=== PATIENT | female | born 1955 | race Caucasian/White ===

== ENCOUNTER 2017-08-21 18:53 | Observation (INO) | payer BC, SELFPAY ==
--- NOTE | 2017-08-21 19:36 | RAD REPORT ---
EXAM DESCRIPTION: RAD - Chest Single View - 08/21/2017 7:27 pm CLINICAL HISTORY: Chest pain. COMPARISON: None. FINDINGS: Portable technique limits examination quality. The lungs are grossly clear. The heart is normal in size. No displaced fractures. IMPRESSION: No acute intrathoracic process suspected.
[2017-08-21 19:44] LABS: Absolute Lymphocytes (CBC) 1.7 K/uL (0.7-4.9); Absolute Monocytes 0.7 K/uL (0.1-1.3); Absolute Neutrophil 7.7 K/uL (1.8-8.0); Basophils % 0.9 % (0-1.3); Eosinophils % 2.2 % (0-4.4); Hematocrit 44.4 % (36.0-45.0); Lymphocytes % 16.1 % (15.3-44.8); MCV 83.4 fL (80-100); MPV 9.2 fL (7.6-11.3); Monocytes % 6.8 % (3.3-12.3); RBC Red Blood Cell Count 5.32 M/uL (3.86-4.86)
[2017-08-21] MEDS ORDERED: ASPIRIN 81 MG CHEWABLE TABLET ONE (19:44)
[2017-08-21] MEDS ORDERED: NA CHLORIDE 0.9% 1,000 ML ONE (19:44)
[2017-08-21 19:47] LABS: Protime INR 1.02
[2017-08-21 19:51] LABS: Potassium 3.2 mEq/L (3.6-5.0)
[2017-08-21 19:57] LABS: Albumin 4.4 g/dL (3.2-5.5); Bilirubin Direct 0.1 mg/dL (0-0.2); Bilirubin Total 0.9 mg/dL (0.3-1.2); Magnesium 2.2 mg/dL (1.8-2.5); Protein, Total 7.6 g/dL (6.0-8.3)
[2017-08-21] MEDS ORDERED: METOPROLOL TAR 50 MG TAB ONE (19:57)
[2017-08-21] MEDS ORDERED: MORPHINE 4 MG/ML SYR ONE (19:58)
[2017-08-21] MEDS ORDERED: ONDANSETRON 4 MG/2 ML VIAL ONE (19:58)
[2017-08-21] MEDS ORDERED: ENOXAPARIN 100 MG/ML SYR SQ ONE (19:58)
[2017-08-21 20:00] LABS: CKMB Creatine Kinase MB 0.9 ng/ml (0.3-4.0)
[2017-08-21] MEDS ORDERED: POTASSIUM CL SA 10 MEQ TAB PO ONE (20:20)
--- NOTE | 2017-08-21 20:31 | EDPHYS ---
Physician Documentation [facility] Name: Brianna Cordero Age: 62 yrs Sex: Female : 1955 Arrival Date: 08/21/2017 Time: 18:56 Bed 2 Private MD: ED Physician Eric Douglas HPI: 08/21 19:25 This 62 yrs old Female presents to ER via Wheelchair with complaints of Chest jamarcus Pain. 19:25 The patient or guardian reports chest pain that is located primarily in the substernal jamarcus area, epigastric area. Onset: just prior to arrival. The pain does not radiate. Associated signs and symptoms: The patient has no apparent associated signs or symptoms. The chest pain is described as a heaviness, a pressure. Duration: The patient or guardian reports multiple episodes, with no pattern. Modifying factors: The symptoms are alleviated by nothing. the symptoms are aggravated by nothing. Severity of pain: At its worst the pain was mild moderate in the emergency department the pain is unchanged. The patient has not experienced similar symptoms in the past. Historical: - Allergies: 19:12 No Known Allergies; lp1 - Home Meds: 19:12 Plavix Oral [Active]; Zoloft Oral [Active]; Xanax Oral [Active]; lp1 - PMHx: 19:12 Depression; [place] X2; COPD; Hypertension; lp1 - PSHx: 19:12 Appendectomy; Tubal ligation; Heart stents; lp1 - Immunization history:: Adult Immunizations up to date. - Social history:: Smoking status: Patient uses tobacco products, smokes one-half pack cigarettes per day. - Family history:: not pertinent. ROS: 19:25 Constitutional: Negative for fever, chills, and weight loss, Eyes: Negative for injury, jamarcus pain, redness, and discharge, ENT: Negative for injury, pain, and discharge, Neck: Negative for injury, pain, and swelling, Respiratory: Negative for shortness of breath, cough, wheezing, and pleuritic chest pain, Abdomen/GI: Negative for abdominal pain, nausea, vomiting, diarrhea, and constipation, Back: Negative for injury and pain, : Negative for injury, bleeding, discharge, and swelling, MS/Extremity: Negative for injury and deformity, Skin: Negative for injury, rash, and discoloration, Neuro: Negative for headache, weakness, numbness, tingling, and seizure. 19:25 Cardiovascular: Positive for chest pain, of the chest. Exam: 19:25 Constitutional: This is a well developed, well nourished patient who is awake, alert, jamarcus and in no acute distress. Head/Face: Normocephalic, atraumatic. Eyes: Pupils equal round and reactive to light, extra-ocular motions intact. Lids and lashes normal. Conjunctiva and sclera are non-icteric and not injected. Cornea within normal limits. Periorbital areas with no swelling, redness, or edema. ENT: Nares patent. No nasal discharge, no septal abnormalities noted. Tympanic membranes are normal and external auditory canals are clear. Oropharynx with no redness, swelling, or masses, exudates, or evidence of obstruction, uvula midline. Mucous membranes moist. Neck: Trachea midline, no thyromegaly or masses palpated, and no cervical lymphadenopathy. Supple, full range of motion without nuchal rigidity, or vertebral point tenderness. No Meningismus. Chest/axilla: Normal chest wall appearance and motion. Nontender with no deformity. No lesions are appreciated. Cardiovascular: Regular rate and rhythm with a normal S1 and S2. No gallops, murmurs, or rubs. Normal PMI, no JVD. No pulse deficits. Respiratory: Lungs have equal breath sounds bilaterally, clear to auscultation and percussion. No rales, rhonchi or wheezes noted. No increased work of breathing, no retractions or nasal flaring. Abdomen/GI: Soft, non-tender, with normal bowel sounds. No distension or tympany. No guarding or rebound. No evidence of tenderness throughout. Back: No spinal tenderness. No costovertebral tenderness. Full range of motion. Skin: Warm, dry with normal turgor. Normal color with no rashes, no lesions, and no evidence of cellulitis. MS/ Extremity: Pulses equal, no cyanosis. Neurovascular intact. Full, normal range of motion. Neuro: Awake and alert, GCS 15, oriented to person, place, time, and situation. Cranial nerves II-XII grossly intact. Motor strength 5/5 in all extremities. Sensory grossly intact. Cerebellar exam normal. Normal gait. Psych: Awake, alert, with orientation to person, place and time. Behavior, mood, and affect are within normal limits. 19:25 Musculoskeletal/extremity: DVT Exam: No signs of deep vein thrombosis. no pain, no swelling, no tenderness, negative Homans' sign noted on exam, no appreciated bluish discoloration, no erythema, no increased warmth. Vital Signs: 19:10 BP 157 / 85; Pulse 90; Resp 20; Temp 98.2(TE); Pulse Ox 97% on R/A; Weight 102.06 kg; lp1 Height 5 ft. 7 in. (170.18 cm); Pain 9/10; 19:15 BP 135 / 61; Pulse 70; Resp 15; Pulse Ox 99% ; bp 20:00 BP 111 / 45; Pulse 67; Resp 15; Pulse Ox 98% ; bp 21:57 BP 127 / 50; Pulse 64; Resp 10; Pulse Ox 99% ; bp 22:30 BP 138 / 66; Pulse 64; Resp 16; Temp 98.0(TE); Pulse Ox 98% on R/A; Pain 0/10; fc 19:10 Body Mass Index 35.24 (102.06 kg, 170.18 cm) lp1 MDM: 19:11 Patient medically screened. [facility] 19:27 Data reviewed: vital signs, nurses notes, lab test result(s), EKG, radiologic studies, jamarcus plain films. 08/21 19:18 Order name: Basic Metabolic Panel; Complete Time: 20:19 [facility] 08/21 19:18 Order name: BNP; Complete Time: 20:19 [facility] 08/21 19:18 Order name: CBC with Diff; Complete Time: 20:19 [facility] 08/21 19:18 Order name: Ckmb; Complete Time: 20:19 [facility] 08/21 19:18 Order name: CPK; Complete Time: 20:19 [facility] 08/21 19:18 Order name: LFT's; Complete Time: 20:19 [facility] 08/21 19:18 Order name: Magnesium; Complete Time: 20:19 [facility] 08/21 19:18 Order name: PT-INR; Complete Time: 20:19 [facility] 08/21 19:18 Order name: Ptt, Activated; Complete Time: 20:19 [facility] 08/21 19:18 Order name: Troponin (emerg Dept Use Only); Complete Time: 20:19 [facility] 08/21 19:18 Order name: Lipase; Complete Time: 20: [facility] 08/21 19:18 Order name: Urine Culture [facility] 08/21 20:30 Order name: Ckmb; Complete Time: 21:43 [facility] 08/21 20:30 Order name: Creatine Phosphokinase; Complete Time: 21:43 [facility] 08/21 19:18 Order name: XRAY Chest (1 view); Complete Time: 19:48 [facility] 08/21 19:18 Order name: EKG; Complete Time: 19:18 [facility] 08/21 19:18 Order name: Cardiac monitoring; Complete Time: 19:37 [facility] 08/21 20:30 Order name: Troponin (emerg Dept Use Only); Complete Time: 21:43 [facility] 08/21 20:55 Order name: CONS Physician Consult [facility] 08/21 20:55 Order name: Echo with Doppler [facility] 08/21 21:02 Order name: Urine Dipstick-Ancillary; Complete Time: 21:43 [facility] 08/21 19:18 Order name: EKG - Nurse/Tech; Complete Time: 19:37 [facility] 08/21 19:18 Order name: IV Saline Lock; Complete Time: 19:36 [facility] 08/21 19:18 Order name: Labs collected and sent; Complete Time: 19:36 [facility] 08/21 19:18 Order name: O2 Per Protocol; Complete Time: 19:36 [facility] 08/21 19:18 Order name: O2 Sat Monitoring; Complete Time: 19:36 [facility] 08/21 19:18 Order name: Urine Dipstick-Ancillary (obtain specimen); Complete Time: 21:05 [facility] 08/21 20:30 Order name: Repeat Cardiac Enzymes at: now; Complete Time: 20:42 [facility] Administered Medications: 19:30 Drug: NS 0.9% 1000 ml Route: IV; Rate: 125 ml/hr; Site: right antecubital; bp 22:37 Follow up: Response: No adverse reaction; IV Status: Infusion continued upon admission; fc IV Intake: 250ml 19:30 Drug: Aspirin 162 mg Route: PO; bp 19:36 Follow up: Response: No adverse reaction bp 19:30 Drug: Aspirin 81 mg Route: PO; bp 19:36 Follow up: Response: No adverse reaction bp 19:40 Drug: morphine 2 mg Route: IVP; Site: right antecubital; bp 19:47 Follow up: Response: No adverse reaction bp 19:40 Drug: Zofran 4 mg Route: IVP; Site: right antecubital; bp 19:47 Follow up: Response: No adverse reaction bp 19:40 Drug: Lovenox 1 mg/kg Route: Sub-Q; Site: right lower abdomen; bp 19:47 Follow up: Response: No adverse reaction bp 19:40 Drug: Lopressor (metoprolol TARTRATE) 50 mg Route: PO; bp 19:48 Follow up: Response: No adverse reaction bp 20:03 Drug: Potassium Chloride 20 mEq Route: PO; bp 20:06 Follow up: Response: No adverse reaction bp 20:43 Drug: morphine 2 mg Route: IVP; Site: right antecubital; bp 20:43 Follow up: Response: Pain is decreased bp Disposition: 08/21/17 20:30 Hospitalization ordered by Shari Zambrano for Observation. Preliminary diagnosis are Chest pain, unspecified, Chronic obstructive pulmonary disease, unspecified, Essential (primary) hypertension, Hypokalemia. - Bed requested for Telemetry/MedSurg (observation). - Status is Observation. fc - Condition is Stable. - Problem is new. - Symptoms have improved. UTI on Admission? No Signatures: Dispatcher [employer] EDMS Eric Douglas MD MD cha Chretien, Felicia, RN RN fc Tara Clay RN RN 1 Katie Santos, MATTEO RN Ramos Richardson RN RN bp Corrections: (The following items were deleted from the chart) 19:14 19:11 Social history: Smoking status: Patient uses tobacco products, lp1 lp1
--- NOTE | 2017-08-21 20:31 | ER ---
Nurse's Notes [facility] Name: Brianna Cordero Age: 62 yrs Sex: Female : 1955 Arrival Date: 08/21/2017 Time: 18:56 Bed 2 Private MD: Diagnosis: Chest pain, unspecified;Chronic obstructive pulmonary disease, unspecified;Essential (primary) hypertension;Hypokalemia Presentation: 08/21 18:58 Presenting complaint: Patient states: Chest pain that began at 1500 today, has been lp1 taking cold medicine OTC; Has taken ASA x1 and Nitro x1. Transition of care: patient was not received from another setting of care. Onset of symptoms was August 21, 2017 at 15:00. Care prior to arrival: None. 18:58 Method Of Arrival: Wheelchair lp1 18:58 Acuity: JAMES 3 lp1 Historical: - Allergies: 19:12 No Known Allergies; lp1 - Home Meds: 19:12 Plavix Oral [Active]; Zoloft Oral [Active]; Xanax Oral [Active]; lp1 - PMHx: 19:12 Depression; [place] X2; COPD; Hypertension; lp1 - PSHx: 19:12 Appendectomy; Tubal ligation; Heart stents; lp1 - Immunization history:: Adult Immunizations up to date. - Social history:: Smoking status: Patient uses tobacco products, smokes one-half pack cigarettes per day. - Family history:: not pertinent. Screenin:10 Fall Risk None identified. bp 19:15 Abuse screen: Denies threats or abuse. Denies injuries from another. Nutritional lp1 screening: No deficits noted. Tuberculosis screening: No symptoms or risk factors identified. Assessment: 19:10 General: Appears distressed, uncomfortable, obese, Behavior is cooperative, appropriate bp for age, anxious. Pain: Complains of pain in mid-sternal area Pain does not radiate. Quality of pain is described as heavy, pressure, Pain began 4 hours ago. Neuro: Level of Consciousness is awake, alert, obeys commands, Oriented to person, place, time, situation, Appropriate for age. Cardiovascular: Reports chest pain, shortness of breath, Capillary refill < 3 seconds in bilateral fingers Patient's skin is warm and dry. Rhythm is regular Chest pain is described as severe, quality is heaviness, is located in substernal area is alleviated by rest. Respiratory: Airway is patent Respiratory effort is even, unlabored, Respiratory pattern is regular, symmetrical. GI: No signs and/or symptoms were reported involving the gastrointestinal system. : No deficits noted. EENT: No deficits noted. Derm: No deficits noted. Musculoskeletal: Circulation, motion, and sensation intact. Range of motion: intact in all extremities. 20:00 Reassessment: PT STATING SOME RELIEF OF S/S, FINAL LABS PENDING. VS STABLE ON MONITOR. bp 21:56 Reassessment: ADMIT IN PROCESS, ADMIT ORDERS FILED BY RAISA OTERO. PT RESTING QUIETLY, VS bp STABLE ON MONITOR. Vital Signs: 19:10 BP 157 / 85; Pulse 90; Resp 20; Temp 98.2(TE); Pulse Ox 97% on R/A; Weight 102.06 kg; lp1 Height 5 ft. 7 in. (170.18 cm); Pain 9/10; 19:15 BP 135 / 61; Pulse 70; Resp 15; Pulse Ox 99% ; bp 20:00 BP 111 / 45; Pulse 67; Resp 15; Pulse Ox 98% ; bp 21:57 BP 127 / 50; Pulse 64; Resp 10; Pulse Ox 99% ; bp 22:30 BP 138 / 66; Pulse 64; Resp 16; Temp 98.0(TE); Pulse Ox 98% on R/A; Pain 0/10; fc 19:10 Body Mass Index 35.24 (102.06 kg, 170.18 cm) lp1 ED Course: 18:56 Patient arrived in ED. mr 18:59 Triage completed. lp1 18:59 Arm band placed on left wrist. lp1 19:10 Ramos Richardson, RN is Primary Nurse. bp 19:10 Inserted saline lock: 18 gauge in right antecubital area, using aseptic technique. bp Blood collected. Oxygen administration via nasal cannula \T\ 2L/min. 19:11 Eric Douglas MD is Attending Physician. [facility] 19:12 EKG done, by ED staff, reviewed by Eric Douglas MD. lp1 19:14 Patient has correct armband on for positive identification. Placed in gown. Bed in low lp1 position. Call light in reach. clay thrower on. Pulse ox on. NIBP on. 19:26 X-ray completed. Portable x-ray completed in exam room. Patient tolerated procedure kc2 well. 19:27 XRAY Chest (1 view) In Process Unspecified. EDMS 20:19 Shari Zambrano MD is Hospitalizing Provider. [facility] 22:31 No provider procedures requiring assistance completed. Patient admitted, IV remains in fc place. Administered Medications: 19:30 Drug: NS 0.9% 1000 ml Route: IV; Rate: 125 ml/hr; Site: right antecubital; bp 22:37 Follow up: Response: No adverse reaction; IV Status: Infusion continued upon admission; IV Intake: 250ml 19:30 Drug: Aspirin 162 mg Route: PO; bp 19:36 Follow up: Response: No adverse reaction bp 19:30 Drug: Aspirin 81 mg Route: PO; bp 19:36 Follow up: Response: No adverse reaction bp 19:40 Drug: morphine 2 mg Route: IVP; Site: right antecubital; bp 19:47 Follow up: Response: No adverse reaction bp 19:40 Drug: Zofran 4 mg Route: IVP; Site: right antecubital; bp 19:47 Follow up: Response: No adverse reaction bp 19:40 Drug: Lovenox 1 mg/kg Route: Sub-Q; Site: right lower abdomen; bp 19:47 Follow up: Response: No adverse reaction bp 19:40 Drug: Lopressor (metoprolol TARTRATE) 50 mg Route: PO; bp 19:48 Follow up: Response: No adverse reaction bp 20:03 Drug: Potassium Chloride 20 mEq Route: PO; bp 20:06 Follow up: Response: No adverse reaction bp 20:43 Drug: morphine 2 mg Route: IVP; Site: right antecubital; bp 20:43 Follow up: Response: Pain is decreased bp Intake: 22:37 IV: 250ml; Total: 250ml. fc Outcome: 20:30 Decision to Hospitalize by Provider. [facility] 22:31 Admitted to Tele accompanied by tech, via wheelchair, room 428, with chart, Report fc called to Michelle FELIPE 22:31 Condition: good 22:31 Discharge instructions given to patient, Instructed on the need for admit, Demonstrated understanding of instructions. 22:38 Patient left the ED. fc Signatures: Dispatcher [employer] EDMS Eric Douglas MD MD cha Rivera, Maria mr Emi Lemon RN RN Tara Clay RN RN lp1 Valerie Villar kc2 Ramos Richardson, RN RN bp Corrections: (The following items were deleted from the chart) 19:14 19:10 BP 157 / 85; Pulse 90bpm; Resp 20bpm; Pulse Ox 97% RA; Temp 98.2F Temporal; Pain lp1 02/01; lp1 19:14 19:11 Social history: Smoking status: Patient uses tobacco products, lp1 lp1 22:36 22:31 Admitted to Tele accompanied by tech, via wheelchair, room 428, with chart, fc Report called to Marce rachel
[2017-08-21] MEDS: POTASSIUM CL SA 10 MEQ TAB PO SCH (21:00)
[2017-08-21 21:06] LABS: Urine Blood 1+ (NEG); Urine Glucose NEGATIVE (NEG); Urine Protein NEGATIVE (NEG); Urine Specific Gravity <1.005 (1.005-1.030); Urine pH 5.5 (5.0-7.0)
[2017-08-21 21:23] LABS: CKMB Creatine Kinase MB 1.1 ng/ml (0.3-4.0)
[2017-08-21] MEDS ORDERED: MORPHINE 4 MG/ML SYR IV PRN (21:43)
[2017-08-21] MEDS ORDERED: ALPRAZOLAM 0.25 MG TABLET PO PRN (21:43)
[2017-08-21] MEDS ORDERED: ACETAMINOPHEN 500 MG TAB PO PRN (21:43)
[2017-08-21 22:50] VITALS: O2SAT 98
[2017-08-21 23:16] VITALS: BP 131/67; BMI 33.0
[2017-08-22 04:27] VITALS: TEMP 98.6
--- NOTE | 2017-08-22 07:22 | CON ---
Date of Consultation: 08/22/2017 Reason For Consultation: Chest pain. History Of Present Illness: Ms. Cordero is a 62-year-old woman. She has a history of depression, co ronary artery disease status post stents, COPD, hypertension, and has had a history of appendectomy a nd tubal ligation. She came in with substernal chest pressure more in the mid epigastric region. No radiation of the pain. The pain was described as heaviness and pressure, multiple episodes. No rel ation to food, body position, time of the day or exertion. Denies nausea, vomiting, diaphoresis, PND , orthopnea, pedal edema, palpitations, or syncope. Allergies: NONE. Review of Systems: Negative. Social History: Negative. Family History: Negative. Medications: Include Plavix, Zoloft, and Xanax. Physical Examination: Vital Signs: Stable. She was afebrile. HEENT: Negative. Neck: Supple with no bruit. Chest: Clear to auscultation and percussion. Cardiac: Revealed a regular rhythm and rate without any murmurs, gallops, or rubs. Abdomen: Benign. Extremities: Revealed no clubbing, cyanosis, or edema. Diagnostic Data: Her creatinine is 1.08, potassium 3.2. EKG, nonspecific. Chest x-ray is negative. Troponin, MB, CPKs are all negative. Impression And Plan: Atypical chest pain, more likely to be gastroesophageal reflux disease. The ignacio parr has a history of coronary artery disease and stents and risk factors, hypertension. Her blood pressure is fairly well controlled now. When she came in, her pressure was slightly elevated with a systolic of 157. It may be reasonable to treat her blood pressure with low-dose beta-blockers or low -dose AL inhibitor. I think adding a proton pump inhibitor and getting her scheduled as an outpatie nt for stress test is thing to do. So, we would not keep her in the hospital until Thursday to do any testing. She can have that done as an outpatient if it is okay with admitting physician. Her other past medical history includes history of depression and COPD. Both of those seem to be stable. HOWARD/REHAN Voice ID: [id number] Report ID: [id number]
--- NOTE | 2017-08-22 08:24 | P.HP ---
Certification for Inpatient Patient admitted to: Observation With expected LOS: <2 Midnights Patient will require the following post-hospital care: None Practitioner: I am a practitioner with admitting privileges, knowledge of patient current condition, hospital course, and medical plan of care. Services: Services provided to patient in accordance with Admission requirements found in Title 42 Section 412.3 of the Code of Federal Regulations Patient History Date of Service: 08/22/17 Reason for admission: Chest pain rule out acute coronary syndrome History of Present Illness: Patient is a 62-year-old female came into the hospital with chest pain. Pain was mainly in the sternal region. Patient states it was similar to her pain that she had which she had acute coronary syndrome a few years ago. She has not had follow-up because of not having insurance. She required 2 stents at that time. She had been taking Plavix daily. She also takes a baby aspirin but no other medication. She will be admitted to the hospital for further workup. Allergies No Known Allergies Allergy (Unverified 08/21/17 20:53) Home Medications: Alprazolam [Xanax*] 0.25 mg PO PRN PRN 08/21/17 Clopidogrel Bisulfate [Plavix*] 75 mg PO DAILY 08/21/17 Sertraline [Zoloft*] 50 mg PO DAILY 08/21/17 Famotidine [Pepcid] 20 mg PO BID #60 tablet 08/22/17 Metoprolol Tartrate [Lopressor*] 50 mg PO BID #60 tab 08/22/17 - Past Medical/Surgical History Has patient received pneumonia vaccine in the past: No Diabetic: No -: [place] x2 - July,; Mar, 2014 -: COPD -: Smoker -: Depression -: R. ankle reconstruction (eyars ago) -: Appy -: Cardiac stents x2 - Family History Father Family History: Reviewed- Non-Contributory - Social History Smoking Status: Current every day smoker Alcohol use: No CD- Drugs: No Caffeine use: Yes Place of Residence: Home Review of Systems 10-point ROS is otherwise unremarkable Physical Examination - Vital Signs Temperature: 98.6 F Blood Pressure: 131/67 Pulse: 65 Respirations: 18 Pulse Ox (%): 96 - Physical Exam General: Alert, In no apparent distress, Oriented x3 HEENT: Atraumatic, PERRLA, Mucous membr. moist/pink, EOMI, Sclerae nonicteric Neck: Supple, 2+ carotid pulse no bruit, No LAD, Without JVD or thyroid abnormality Respiratory: Clear to auscultation bilaterally, Normal air movement Cardiovascular: Regular rate/rhythm, Normal S1 S2, No murmurs Gastrointestinal: Normal bowel sounds, Soft and benign, Non-distended, No tenderness Musculoskeletal: No clubbing, No swelling, No tenderness Integumentary: No rashes Neurological: Normal gait, Normal speech, Normal strength at 5/5 x4 extr, Normal tone, Sensation intact, Cranial nerves 3-12 intact, Normal affect Lymphatics: No axilla or inguinal lymphadenopathy - Studies Laboratory Data (last 24 hrs) 08/21/17 19:15: PT 12.0, INR 1.02, APTT 25.3 08/21/17 19:15: WBC 10.4, Hgb 14.9, Hct 44.4, Plt Count 302 08/21/17 19:15: B-Natriuretic Peptide 93 08/21/17 19:15: Sodium 137, Potassium 3.2 L, BUN 11, Creatinine 1.08 H, Glucose 99, Magnesium 2.2, Total Bilirubin 0.9, AST 19, ALT 13, Alkaline Phosphatase 94 , Lipase 16 L Assessment & Plan - Problems (Diagnosis) (1) Chest pain, rule out acute myocardial infarction Current Visit: Yes Status: Acute (2) History of coronary artery stent placement Current Visit: Yes Status: Acute (3) Hyperlipidemia Current Visit: Yes Status: Acute (4) Hypertension Current Visit: Yes Status: Acute - Plan 1. Serial troponins and EKG 2. Cardiology consultation 3. Echocardiogram and stress test as an outpatient 4. Anti-platelet therapy, anti coagulation, beta-erwin, statin, and O2 as needed 5. IV morphine for pain 6. Nitro p.r.n. - Advance Directives Does patient have a Living Will: No Does patient have a Durable POA for Healthcare: No Home Medications: Alprazolam [Xanax*] 0.25 mg PO PRN PRN 08/21/17 Clopidogrel Bisulfate [Plavix*] 75 mg PO DAILY 08/21/17 Sertraline [Zoloft*] 50 mg PO DAILY 08/21/17 Famotidine [Pepcid] 20 mg PO BID #60 tablet 08/22/17 Metoprolol Tartrate [Lopressor*] 50 mg PO BID #60 tab 08/22/17 Patient Discharge Instructions: OK TO DC IV AND DC HOME. FOLLOW-UP WITH PRIMARY CARE PROVIDER IN 1-2 WEEKS. FOLLOW-UP WITH CARDIOLOGY IN 1-2 WEEKS. RETURN TO THE ER IF symptoms worsen. CALL or TEXT DR. KLINE AT [phone] IF ANY QUESTIONS REGARDING HOSPITAL STAY. PLEASE CALL THE FLOOR AT [phone] IF ANY MEDICATION OR NURSING QUESTIONS. Diet: AHA Activity: Fall precautions Time spent managing pt's care (in minutes): 55
[2017-08-22] MEDS ORDERED: METOPROLOL TAR 50 MG TAB PO SCH (09:00)
[2017-08-22] MEDS ORDERED: ASPIRIN EC 81 MG TAB PO SCH (09:00)
[2017-08-22] MEDS ORDERED: LISINOPRIL 10 MG TAB PO SCH (09:00)
[2017-08-22] MEDS ORDERED: ENOXAPARIN 40 MG/0.4 ML SQ SCH (09:00)
[2017-08-22] MEDS: POTASSIUM CL SA 10 MEQ TAB PO SCH (10:06)
--- NOTE | 2017-08-23 12:53 | EKG ---
Test Date: 2017-08-21 Test Time: 19:05:10 Photolithographic Stripper: SANKET MEASUREMENT RESULTS: Intervals: Rate: 82 NM: 130 QRSD: 72 QT: 402 QTc: 469 [place]: P: 41 NM: 130 QRS: 12 T: 48 INTERPRETIVE STATEMENTS: Normal sinus rhythm Prolonged QT Abnormal ECG Compared to ECG 09/30/2016 17:49:31 Prolonged QT interval now present ST (T wave) deviation no longer present Electronically Signed On 08-23-17 12:52:05 CDT by Gabriel Hernandez
== END 2017-08-22 11:58 | disposition home or self-care (01) ==
LOC: ER 18:53 → ERHOLD 21:07 → 4TH 22:07
PROVIDERS: ADMIT Hospitalist; ATTEND Hospitalist
DX: Z95.5 Presence of coronary angioplasty implant and graft; R07.9 Chest pain, unspecified; I10 Essential (primary) hypertension; F17.210 Nicotine dependence, cigarettes, uncomplicated; J44.9 Chronic obstructive pulmonary disease, unspecified; E78.5 Hyperlipidemia, unspecified
CPT/HCPCS: 36415; 71045; 80048; 80061; 80076; 81003; 82550; 82553; 83690; 83735; 83880; 84484; 85025; 85610; 85730; 87086; 87088; 93005; 96361; 96372; 96374; 96375; 99285; G0378; J1650; J2405; J7030

== ENCOUNTER 2018-10-04 21:09 | Inpatient (IN) | payer SELFPAY ==
[2018-10-04 21:33] LABS: Absolute Lymphocytes (CBC) 2.7 K/uL (0.7-4.9); Absolute Monocytes 0.8 K/uL (0.1-1.3); Absolute Neutrophil 7.7 K/uL (1.8-8.0); Basophils % 2.8 % (0-1.3); Eosinophils % 2.2 % (0-4.4); Hematocrit 41.9 % (36.0-45.0); Lymphocytes % 22.8 % (15.3-44.8); MPV 8.8 fL (7.6-11.3); Monocytes % 6.5 % (3.3-12.3); RBC Red Blood Cell Count 4.96 M/uL (3.86-4.86)
[2018-10-04 21:34] LABS: Protime INR 1.03
[2018-10-04 21:52] LABS: ALT/SGPT 13 U/L (12-78); AST/SGOT 12 U/L (15-37); Alkaline Phosphatase 122 U/L (45-117); BUN Blood Urea Nitrogen 13 mg/dL (7-18); Bicarbonate 26 mmol/L (21-32); Bilirubin Direct 0.1 mg/dL (0-0.2); Bilirubin Total 0.6 mg/dL (0.2-1.0); Glucose Level 87 mg/dL (74-106); Magnesium 2.5 mg/dL (1.8-2.4); NT PRO-BNP 315 pg/mL (<125); Potassium 3.6 mmol/L (3.5-5.1); Protein, Total 7.6 g/dL (6.4-8.2); Sodium Level 140 mmol/L (136-145); Troponin (Emerg Dept Use Only) < 0.02 ng/mL (0.0-0.045)
[2018-10-04] MEDS ORDERED: NITROGLYCERIN 1 GM PKT TD ONE (22:18)
[2018-10-04] MEDS ORDERED: NITROGLYCERIN 0.4 MG/TAB SL ONE (22:19)
--- NOTE | 2018-10-04 22:28 | ER ---
Nurse's Notes [facility] Name: Brianna Cordero Age: 63 yrs Sex: Female : 1955 Arrival Date: 10/04/2018 Time: 21:10 Bed 17 [facility] MD: Diagnosis: Unstable angina Presentation: 10/04 21:16 Presenting complaint: Patient states: right sided CP since 1919 this evening. Describes aa1 pain as pressure that is 5/10. States she also quit taking her BP medication and blood thinner 5-6 months ago because she ran out and has not had time to go to the doctor to have them refilled. Transition of care: patient was not received from another setting of care. Onset of symptoms was October 04, 2018 at 19:20. Risk Assessment: Do you want to hurt yourself or someone else? Patient reports no desire to harm self or others. Initial Sepsis Screen: Does the patient meet any 2 criteria? No. Patient's initial sepsis screen is negative. Does the patient have a suspected source of infection? No. Patient's initial sepsis screen is negative. Care prior to arrival: IV initiated. 20 GA, in the left antecubital area. 21:16 Method Of Arrival: EMS: [facility] aa1 21:16 Acuity: JAMES 2 aa1 Triage Assessment: 21:16 General: Appears in no apparent distress. comfortable, Behavior is calm, cooperative, aa1 appropriate for age. Historical: - Allergies: 10/05 02:16 No Known Allergies; jd3 - PMHx: 02:16 Depression; COPD; Hypertension; [place] X2; jd3 - PSHx: 02:16 Appendectomy; Tubal ligation; Heart stents; jd3 - Immunization history:: Flu vaccine is not up to date. - Social history:: Smoking status: Patient uses tobacco products, smokes one-half pack cigarettes per day. - Ebola Screening: : No symptoms or risks identified at this time. Screenin/13 21:46 Abuse screen: Denies threats or abuse. Nutritional screening: No deficits noted. jd3 Tuberculosis screening: No symptoms or risk factors identified. Fall Risk IV access (20 points). Ambulatory Aid- None/Bed Rest/Nurse Assist (0 pts). Gait- Normal/Bed Rest/Wheelchair (0 pts) Mental Status- Oriented to own ability (0 pts). Total [place] Fall Scale indicates No Risk (0-24 pts). Assessment: 21:16 General: Appears in no apparent distress. uncomfortable, Behavior is calm, cooperative, jd3 appropriate for age. Pain: Complains of pain in chest Pain does not radiate. Pain began 1 hour ago. Neuro: Level of Consciousness is awake, alert, obeys commands, Oriented to person, place, time, situation, Appropriate for age. Cardiovascular: Heart tones S1 S2 present Capillary refill < 3 seconds Patient's skin is warm and dry. Rhythm is regular. Respiratory: Airway is patent Respiratory effort is even, unlabored, Respiratory pattern is regular, symmetrical, Breath sounds are clear bilaterally. GI: No signs and/or symptoms were reported involving the gastrointestinal system. : No signs and/or symptoms were reported regarding the genitourinary system. EENT: No signs and/or symptoms were reported regarding the EENT system. Derm: Skin is intact, Skin is dry, Skin is normal, Skin temperature is warm. Musculoskeletal: Circulation, motion, and sensation intact. Range of motion: intact in all extremities. 22:20 Reassessment: Patient appears in no apparent distress at this time. No changes from jd3 previously documented assessment. Patient and/or family updated on plan of care and expected duration. Pain level reassessed. Patient is alert, oriented x 3, equal unlabored respirations, skin warm/dry/pink. 23:30 Reassessment: Patient appears in no apparent distress at this time. Patient and/or jd3 family updated on plan of care and expected duration. Pain level reassessed. Patient is alert, oriented x 3, equal unlabored respirations, skin warm/dry/pink. 10/05 00:30 Reassessment: Patient appears in no apparent distress at this time. Patient and/or jd3 family updated on plan of care and expected duration. Pain level reassessed. Patient is alert, oriented x 3, equal unlabored respirations, skin warm/dry/pink. 01:30 Reassessment: Patient appears in no apparent distress at this time. Patient and/or jd3 family updated on plan of care and expected duration. Pain level reassessed. Patient is alert, oriented x 3, equal unlabored respirations, skin warm/dry/pink. 02:04 Reassessment: Patient appears in no apparent distress at this time. Patient and/or jd3 family updated on plan of care and expected duration. Pain level reassessed. Patient is alert, oriented x 3, equal unlabored respirations, skin warm/dry/pink. Vital Signs: 10/04 21:16 BP 158 / 66; Pulse 61; Resp 18; Temp 99.1(O); Pulse Ox 100% on R/A; Weight 102.06 kg; aa1 Height 5 ft. 7 in. (170.18 cm); Pain 5/10; 22:20 BP 110 / 63; Pulse 71; Resp 15 S; Pulse Ox 96% on R/A; jd3 23:29 BP 138 / 59; Pulse 65; Resp 18 S; Pulse Ox 97% on R/A; jd3 10/05 02:03 BP 120 / 60; Pulse 58; Resp 15 S; Pulse Ox 94% on R/A; jd3 10/04 21:16 Body Mass Index 35.24 (102.06 kg, 170.18 cm) aa1 ED Course: 10/04 20:16 Initial lab(s) drawn, by ED staff, sent to lab. EKG done, by ED staff, reviewed by aa1 Deacon Tran MD. Maintain EMS IV. Dressing intact. Good blood return noted. Site clean \T\ dry. Gauge \T\ site: 20g LAC. Patient maintains SpO2 saturation greater than 95% on room air. 21:10 Patient arrived in ED. ds1 21:11 Patient has correct armband on for positive identification. Placed in gown. Bed in low aa1 position. Call light in reach. cafeteria monitor on. Pulse ox on. NIBP on. Warm blanket given. 21:14 Deacon Tran MD is Attending Physician. tw4 21:16 Arm band placed on right wrist. aa1 21:20 Marshal Roldan RN is Primary Nurse. jd3 21:27 Triage completed. aa1 21:55 XRAY Chest (1 view) In Process Unspecified. EDMS 22:27 Joann Elizabeth MD is Hospitalizing Provider. tw4 10/05 02:16 No provider procedures requiring assistance completed. Patient admitted, IV remains in jd3 place. Administered Medications: 10/04 22:15 Drug: Nitro-Bid Ointment 2 % 0.5 inches Route: Transdermal; Site: anterior chest wall; jd3 22:54 Follow up: Response: No adverse reaction jd3 22:16 Drug: Nitroglycerin 0.4 mg Route: Sublingual; jd3 22:54 Follow up: Response: No adverse reaction jd3 22:53 Drug: morphine 4 mg Route: IVP; Site: left antecubital; jd3 23:50 Follow up: Response: No adverse reaction jd3 22:53 Drug: Zofran 4 mg Route: IVP; Site: left antecubital; jd3 23:50 Follow up: Response: No adverse reaction jd3 22:53 Drug: Lovenox 1 mg/kg Route: Sub-Q; Site: abdomen; jd3 23:50 Follow up: Response: No adverse reaction jd3 Outcome: 22:28 Decision to Hospitalize by Provider. tw4 10/05 02:17 Admitted to Tele accompanied by nurse, via stretcher, room 415, with chart, Report jd3 called to Maria FELIPE Condition: stable Instructed on the need for admit. 02:25 Patient left the ED. anderson Signatures: Dispatcher [employer] EDMartha Pearce, RN RN rabia1 Jackie Hurley Jonathon, RN RN Deacon Ding MD MD tw4 Corrections: (The following items were deleted from the chart) 02:04 02:03 BP 104 / 49; Pulse 58bpm; Resp 15bpm; Spontaneous; Pulse Ox 94% RA; jd3 jd3
--- NOTE | 2018-10-04 22:28 | EDPHYS ---
Physician Documentation [facility] Name: Brianna Cordero Age: 63 yrs Sex: Female : 1955 Arrival Date: 10/04/2018 Time: 21:10 Bed 17 Private MD: ED Physician Deacon Tran HPI: 10/05 01:51 This 63 yrs old Female presents to ER via EMS with complaints of Chest Pain. tw4 01:51 The patient or guardian reports chest pain that is located primarily in the anterior tw4 chest wall. Onset: just prior to arrival, today, 2 hour(s) ago. The pain radiates to left neck, left jaw. Associated signs and symptoms: The patient has no apparent associated signs or symptoms. The chest pain is described as a heaviness, a pressure. Duration: The patient or guardian reports a single episode, that is still ongoing. Modifying factors: The symptoms are alleviated by nothing. the symptoms are aggravated by nothing. Severity of pain: At its worst the pain was mild in the emergency department the pain is unchanged. The patient has not experienced similar symptoms in the past. Historical: - Allergies: 02:16 No Known Allergies; jd3 - PMHx: 02:16 Depression; COPD; Hypertension; [place] X2; jd3 - PSHx: 02:16 Appendectomy; Tubal ligation; Heart stents; jd3 - Immunization history:: Flu vaccine is not up to date. - Social history:: Smoking status: Patient uses tobacco products, smokes one-half pack cigarettes per day. - Ebola Screening: : No symptoms or risks identified at this time. ROS: 01:51 Constitutional: Negative for fever, chills, and weight loss, Eyes: Negative for injury, tw4 pain, redness, and discharge, Respiratory: Negative for shortness of breath, cough, wheezing, and pleuritic chest pain, Abdomen/GI: Negative for abdominal pain, nausea, vomiting, diarrhea, and constipation, Back: Negative for injury and pain, MS/Extremity: Negative for injury and deformity, Skin: Negative for injury, rash, and discoloration. Exam: 01:51 Constitutional: This is a well developed, well nourished patient who is awake, alert, tw4 and in no acute distress. Head/Face: Normocephalic, atraumatic. Chest/axilla: Normal chest wall appearance and motion. Nontender with no deformity. No lesions are appreciated. Cardiovascular: Regular rate and rhythm with a normal S1 and S2. No gallops, murmurs, or rubs. Normal PMI, no JVD. No pulse deficits. Respiratory: Lungs have equal breath sounds bilaterally, clear to auscultation and percussion. No rales, rhonchi or wheezes noted. No increased work of breathing, no retractions or nasal flaring. Abdomen/GI: Soft, non-tender, with normal bowel sounds. No distension or tympany. No guarding or rebound. No evidence of tenderness throughout. Back: No spinal tenderness. No costovertebral tenderness. Full range of motion. MS/ Extremity: Pulses equal, no cyanosis. Neurovascular intact. Full, normal range of motion. Neuro: Awake and alert, GCS 15, oriented to person, place, time, and situation. Cranial nerves II-XII grossly intact. Motor strength 5/5 in all extremities. Sensory grossly intact. Cerebellar exam normal. Normal gait. Vital Signs: 10/04 21:16 BP 158 / 66; Pulse 61; Resp 18; Temp 99.1(O); Pulse Ox 100% on R/A; Weight 102.06 kg; aa1 Height 5 ft. 7 in. (170.18 cm); Pain 5/10; 22:20 BP 110 / 63; Pulse 71; Resp 15 S; Pulse Ox 96% on R/A; jd3 23:29 BP 138 / 59; Pulse 65; Resp 18 S; Pulse Ox 97% on R/A; jd3 10/05 02:03 BP 120 / 60; Pulse 58; Resp 15 S; Pulse Ox 94% on R/A; jd3 10/04 21:16 Body Mass Index 35.24 (102.06 kg, 170.18 cm) aa1 MDM: 10/04 21:14 Patient medically screened. tw4 10/05 01:58 Differential diagnosis: acute myocardial infarction, acute pericarditis, pulmonary tw4 embolus, stable angina, unstable angina. Data reviewed: vital signs, nurses notes. Data interpreted: youth nutritional monitor: rhythm is normal sinus rhythm, Pulse oximetry:. Test interpretation: by ED physician or midlevel provider: ECG, plain radiologic studies. Medication response: Nitro x 3 partially relieved pain. Response to treatment: the patient's symptoms have markedly improved after treatment, and as a result, I will admit patient. Physician consultation: Joann Elizabeth MD regarding admission, patient's condition, and will see patient in inpatient room, would like consultation with . Dr Hernandez consulted at 0030 agrees to see pt in consultation. ED course: Pt rested comfortably on the stretcher in the ED states her pain slightly improved with NTG and resolved after morphine. will admit for unstable angina. 10/04 21:21 Order name: Basic Metabolic Panel; Complete Time: 22:22 [facility] 10/04 22:23 Interpretation: Normal except: CL 108; GFR 61. [facility] 10/04 21:21 Order name: CBC with Diff; Complete Time: 22:23 [facility] 10/04 22:23 Interpretation: Normal except: WBC 11.7; RBC 4.96. [facility] 10/04 21:21 Order name: LFT's; Complete Time: 22:24 [facility] 10/04 22:24 Interpretation: Normal except: AST 12; ALK 122; GLOB 3.6. [facility] 10/04 21:21 Order name: Magnesium; Complete Time: 22:24 [facility] 10/04 22:24 Interpretation: Normal except: MG 2.5. [facility] 10/04 21:21 Order name: NT PRO-BNP; Complete Time: 22:24 [facility] 10/04 22:24 Interpretation: Normal except: NT PRO-BNP 315. [facility] 10/04 21:21 Order name: PT-INR [facility] 10/04 21:21 Order name: Troponin (emerg Dept Use Only) [facility] 10/04 21:21 Order name: XRAY Chest (1 view) [facility] 10/04 23:18 Order name: Troponin I [facility] 10/04 21:21 Order name: EKG; Complete Time: 21:21 [facility] 10/04 21:21 Order name: Cardiac monitoring; Complete Time: 21:21 [facility] 10/04 21:21 Order name: EKG - Nurse/Tech; Complete Time: 21:21 [facility] 10/04 21:21 Order name: IV Saline Lock; Complete Time: 21:21 [facility] 10/04 21:21 Order name: Labs collected and sent; Complete Time: 21:21 [facility] 10/04 21:21 Order name: O2 Per Protocol; Complete Time: 21:21 [facility] 10/04 21:21 Order name: O2 Sat Monitoring; Complete Time: 21:21 j 10/04 23:18 Order name: EKG Electrocardiogram [facility] EC:57 Rate is 61 beats/min. Rhythm is regular, Normal Sinus Rhythm. QRS [place] is Normal. [place] tw4 interval is normal. QRS interval is normal. QT interval is normal. No Q waves. T waves are Normal. No ST changes noted. Clinical impression: Normal ECG. Interpreted by me. Reviewed by me. Administered Medications: 10/04 22:15 Drug: Nitro-Bid Ointment 2 % 0.5 inches Route: Transdermal; Site: anterior chest wall; jd3 22:54 Follow up: Response: No adverse reaction jd3 22:16 Drug: Nitroglycerin 0.4 mg Route: Sublingual; jd3 22:54 Follow up: Response: No adverse reaction jd3 22:53 Drug: morphine 4 mg Route: IVP; Site: left antecubital; jd3 23:50 Follow up: Response: No adverse reaction jd3 22:53 Drug: Zofran 4 mg Route: IVP; Site: left antecubital; jd3 23:50 Follow up: Response: No adverse reaction jd3 22:53 Drug: Lovenox 1 mg/kg Route: Sub-Q; Site: abdomen; jd3 23:50 Follow up: Response: No adverse reaction jd3 Disposition: 10/04/18 22:28 Hospitalization ordered by Joann Elizabeth for Observation. Preliminary diagnosis is Unstable angina. - Bed requested for Telemetry/MedSurg (Inpatient). - Status is Observation. jd3 - Condition is Stable. - Problem is an ongoing problem. - Symptoms are unchanged. UTI on Admission? No Signatures: Dispatcher [employer] [facility] Brandi Browning RN RN mw Martha Alas RN RN Marhsal Steele RN RN Deacon Ding MD MD tw4 Corrections: (The following items were deleted from the chart) 10/05 01:29 10/04 22:28 Hospitalization Ordered by Joann Elizabeth MD for Observation. Preliminary diagnosis is Unstable angina. Bed requested for Telemetry/MedSurg (Inpatient). Status is Observation. Condition is Stable. Problem is an ongoing problem. Symptoms are unchanged. UTI on Admission? No. tw4 10/05 02:25 01:29 10/04/2018 22:28 Hospitalization Ordered by Joann Elizabeth MD for Observation. jd3 Preliminary diagnosis is Unstable angina. Bed requested for Telemetry/MedSurg (Inpatient). Status is Observation. Condition is Stable. Problem is an ongoing problem. Symptoms are unchanged. UTI on Admission? No. mw
[2018-10-04] MEDS ORDERED: MORPHINE 4 MG/ML SYR ONE (22:57)
[2018-10-04] MEDS ORDERED: ONDANSETRON 4 MG/2 ML VIAL ONE (22:58)
[2018-10-04] MEDS ORDERED: ENOXAPARIN 100 MG/ML SYR SQ ONE (22:58)
[2018-10-05] MEDS ORDERED: NITROGLYCERIN 0.4 MG/TAB SL PRN (02:35)
[2018-10-05 02:40] VITALS: BMI 32.1
[2018-10-05 03:38] LABS: Absolute Lymphocytes (CBC) 2.7 K/uL (0.7-4.9); Absolute Monocytes 0.7 K/uL (0.1-1.3); Absolute Neutrophil 5.2 K/uL (1.8-8.0); Basophils % 2.6 % (0-1.3); Eosinophils % 3.2 % (0-4.4); Hematocrit 39.8 % (36.0-45.0); Lymphocytes % 29.3 % (15.3-44.8); MPV 9.1 fL (7.6-11.3); Monocytes % 7.3 % (3.3-12.3); RBC Red Blood Cell Count 4.74 M/uL (3.86-4.86)
[2018-10-05 03:50] LABS: BUN Blood Urea Nitrogen 14 mg/dL (7-18); Bicarbonate 25 mmol/L (21-32); Glucose Level 92 mg/dL (74-106); Sodium Level 140 mmol/L (136-145); Troponin I < 0.02 ng/mL (0.0-0.045)
--- NOTE | 2018-10-05 05:47 | P.HP ---
Certification for Inpatient Patient admitted to: Inpatient With expected LOS: >2 Midnights Practitioner: I am a practitioner with admitting privileges, knowledge of patient current condition, hospital course, and medical plan of care. Services: Services provided to patient in accordance with Admission requirements found in Title 42 Section 412.3 of the Code of Federal Regulations Patient History Date of Service: 10/05/18 Reason for admission: chest pain History of Present Illness: Ms Cordero is a 63 years old woman with history of CAD s/p stent placement, HTN , tobacco abuse, who start with chest pain this evening around 7:20 PM. She describe the pain as pressure like, retrosternal, radiated to the jaw, associated with nausea, SOB, 7/10 of intensity, relived after nitro to 3/10. She denied diaphoresis. The patient states that she has not taken her medication for the last 5-6 months because has not had follow up. Initial EKG shows slightly ST depression in anterior leads, improved after pain decreased. Lab work shows normal trop I. At the time of my encounter the patient was still having chest pain but very mild. O2 sat 100% on RA, HR 61, BP 158/66. Allergies No Known Allergies Allergy (Unverified 08/21/17 20:53) Home medications list reviewed: Yes Home Medications: Aspirin 81 mg PO DAILY 10/05/18 - Past Medical/Surgical History Has patient received pneumonia vaccine in the past: No Diabetic: No -: [place] x2 - July,; Mar, 2014 -: COPD -: Smoker -: Depression -: HTN -: R. ankle reconstruction (years ago) -: Appendectomy -: Cardiac stents x2 (2006,2013) - Family History Mother -: Heart disease, Diabetes, Cancer Father -: Heart disease, Diabetes - Social History Smoking Status: Current every day smoker Counseled patient to stop smoking for: less than 10 minutes Alcohol use: No CD- Drugs: No Caffeine use: Yes Place of Residence: Home Review of Systems 10-point ROS is otherwise unremarkable Physical Examination - Vital Signs Temperature: 97.1 F Blood Pressure: 137/60 Pulse: 58 Respirations: 18 Pulse Ox (%): 95 - Physical Exam General: Alert, In no apparent distress HEENT: Atraumatic, PERRLA, Mucous membr. moist/pink, EOMI, Sclerae nonicteric Neck: Supple, 2+ carotid pulse no bruit, No LAD, Without JVD or thyroid abnormality Respiratory: Clear to auscultation bilaterally, Diminished Cardiovascular: Regular rate/rhythm, Normal S1 S2 Gastrointestinal: Normal bowel sounds, No tenderness Musculoskeletal: No tenderness Integumentary: No rashes Neurological: Normal speech, Normal strength at 5/5 x4 extr, Normal tone, Normal affect Lymphatics: No axilla or inguinal lymphadenopathy - Studies Laboratory Data (last 24 hrs) 10/05/18 00:44: Troponin I < 0.02 10/04/18 21:20: PT 12.1, INR 1.03 10/04/18 21:20: WBC 11.7 H, Hgb 13.9, Hct 41.9, Plt Count 331 10/04/18 21:20: Sodium 140, Potassium 3.6, BUN 13, Creatinine 0.94, Glucose 87, Magnesium 2.5 H, Total Bilirubin 0.6, AST 12 L, ALT 13, Alkaline Phosphatase 122 H Assessment and Plan - Problems (Diagnosis) (1) CAD (coronary artery disease) Current Visit: Yes Status: Acute Qualifiers: Coronary Disease-Associated Artery/Lesion type: [place] artery [place] vs. transplanted heart: [place] heart Associated angina: with unstable angina Qualified Code(s): I25.110 - Atherosclerotic heart disease of [place] coronary artery with unstable angina pectoris (2) Unstable angina Current Visit: Yes Status: Acute (3) Hyperlipidemia Current Visit: No Status: Acute Qualifiers: Hyperlipidemia type: unspecified Qualified Code(s): E78.5 - Hyperlipidemia , unspecified (4) Hypertension Current Visit: No Status: Acute Qualifiers: Hypertension type: essential hypertension Qualified Code(s): I10 - Essential (primary) hypertension - Plan Will admit the patient to the hospital due to unstable angina. Will order full dose Lovenox, statins, ASA, wave beta erwin due to baradycardia. Dr Hernandez was consulted by ER physician, he will see the patient in AM. Continue serial EKG and cardica enzymes monitoring. - Advance Directives Does patient have a Living Will: No Does patient have a Durable POA for Healthcare: No - Code Status/Comfort Care Code Status Assessed: Yes Code Status: Full Code
[2018-10-05] MEDS ORDERED: HYDRALAZINE HCL 20 MG/ML VIAL IV PRN (06:57)
--- NOTE | 2018-10-05 07:39 | RAD REPORT ---
EXAM DESCRIPTION: Alexandrea Single View10/04/2018 9:55 pm CLINICAL HISTORY: Chest pain COMPARISON: 2018 FINDINGS: The lungs appear clear of acute infiltrate. The heart is normal size IMPRESSION: No acute abnormalities displayed
--- NOTE | 2018-10-05 07:54 | EKG ---
Test Date: 2018-10-04 Test Time: 23:41:57 Probate Paralegal: JAYASHREE MEASUREMENT RESULTS: Intervals: Rate: 53 MA: 140 QRSD: 74 QT: 480 QTc: 450 [place]: P: 42 MA: 140 QRS: 5 T: 5 INTERPRETIVE STATEMENTS: Sinus bradycardia Otherwise normal ECG Compared to ECG 10/04/2018 21:16:51 Sinus rhythm no longer present Electronically Signed On 10-05-18 07:53:30 CDT by Gabriel Hernandez
--- NOTE | 2018-10-05 07:55 | EKG ---
Test Date: 2018-10-04 Test Time: 21:16:51 Loom Fixer: RICARDO MEASUREMENT RESULTS: Intervals: Rate: 61 [place]: 130 QRSD: 78 QT: 450 QTc: 453 [place]: P: 58 [place]: 130 QRS: 13 T: 34 INTERPRETIVE STATEMENTS: Normal sinus rhythm Normal ECG Compared to ECG 08/21/2017 19:05:10 Prolonged QT interval no longer present Electronically Signed On 10-05-18 07:55:01 CDT by Gabriel Hernandez
[2018-10-05 08:45] VITALS: O2SAT 95
[2018-10-05] MEDS ORDERED: ASPIRIN EC 81 MG TAB PO SCH (09:00)
[2018-10-05] MEDS ORDERED: ENOXAPARIN 100 MG/ML SYR SQ SCH (09:00)
[2018-10-05] MEDS ORDERED: ACETAMINOPHEN 500 MG TAB PO PRN (10:34)
[2018-10-05] MEDS ORDERED: TRAMADOL HCL 50 MG TAB PO PRN (10:34)
[2018-10-05 11:17] LABS: Urine Appearance CLEAR; Urine Bilirubin NEGATIVE (NEG); Urine Blood 1+ (NEG); Urine Color YELLOW; Urine Glucose NEGATIVE (NEG); Urine Protein NEGATIVE (NEG); Urine Specific Gravity 1.015 (1.005-1.030); Urine Urobilinogen 0.2 mg/dL (0.2-1.0)
[2018-10-05 11:36] LABS: Urine Microscopic Reflex ORDER UMIC
[2018-10-05 12:02] LABS: Urine Bacteria <20 /HPF (<20); Urine Culture Reflex Order NOT NEEDED
--- NOTE | 2018-10-05 12:26 | ECHO ---
HEIGHT: 5 ft 7 in WEIGHT: 204 lb 12.8 oz DATE OF STUDY: 10/05/[address]: Joann Tejada MD 2-DIMENSIONAL: YES M.MODE: YES DOPPLER: YES COLOR FLOW: YES TDS: NO PORTABLE: NO DEFINITY: NO BUBBLE STUDY: NO DIAGNOSIS: UNSTABLE ANGINA CARDIAC HISTORY: CATHERIZATION: YES SURGERY: NO PROSTHETIC VALVE: NO PACEMAKER: NO MEASUREMENTS (cm) DIASTOLIC (NORMALS) SYSTOLIC (NORMALS) IVSd 0.9 (0.6-1.2) LA Diam 3.3 (1.9-4.0) LVEF 62% LVIDd 4.2 (3.5-5.7) LVIDs 2.8 (2.0-3.5) %FS 33% LVPWd 1.0 (0.6-1.2) Ao Diam 3.1 (2.0-3.7) 2 DIMENSIONAL ASSESSMENT: RIGHT ATRIUM: NORMAL LEFT ATRIUM: NORMAL RIGHT VENTRICLE: NORMAL LEFT VENTRICLE: NORMAL TRICUSPID VALVE: NORMAL MITRAL VALVE: NORMAL PULMONIC VALVE: NORMAL AORTIC VALVE: NORMAL PERICARDIAL EFFUSION: NONE AORTIC ROOT: NORMAL LEFT VENTRICULAR WALL MOTION: NORMAL DOPPLER/COLOR FLOW: NORMAL COMMENTS: TECHNICALLY DIFFICULT STUDY. GROSSLY NORMAL LEFT VENTRICULAR EJECTION FRACTION AND SIZE. NO WALL MOTION ABNORMALITY. NO EFFUSION. TECHNOLOGIST: Saji BLAS
--- NOTE | 2018-10-05 13:32 | P.DS ---
Admission Date: 10/05/18 Discharge Date: 10/05/18 Primary Care Provider: AMPARO Hankins Disposition: ROUTINE DISCHARGE Discharge Condition: GOOD Reason for Admission: chest pain Consultations: Cardiology-Dr. Beckwith Procedures: ECHO: Ejection fraction 62% LEFT VENTRICULAR WALL MOTION: NORMAL DOPPLER/COLOR FLOW: NORMAL COMMENTS: TECHNICALLY DIFFICULT STUDY. GROSSLY NORMAL LEFT VENTRICULAR EJECTION FRACTION AND SIZE. NO WALL MOTION ABNORMALITY. NO EFFUSION. Medical Problem List: Chest pain with history of CAD and prior stent Hypertension Hyperlipidemia COPD Tobacco abuse Brief History of Present Illness: 63-year-old female presented to the emergency room with chest pain. Patient with prior history of CAD and prior stent late last year. Patient is not followed up with her burnisher and bumper in [facility]. Patient admitted for further evaluation. Hospital Course: Patient presented with chest pain. Patient with history of CAD in prior stent in late 2017. Patient has not followed up with her burnisher and bumper in [facility]. Patient non compliant with her medication. Patient was evaluated in the hospital. Cardiology was consulted. Cardiology recommended cardiac evaluation including cardiac stress test and/or heart catheterization. The patient declined as she wanted to follow up with her burnisher and bumper in [facility]. Echocardiogram was obtained. This is within normal range. Cardiac enzymes unremarkable. At discharge compliance with medication and follow up addressed. Recommend to continue with aspirin 81 mg daily, Plavix 75 mg 1 pill daily, lisinopril 5 mg daily, Lipitor 80 mg daily, and nitroglycerin as needed for chest pain. Recommend to follow up with her burnisher and bumper in [facility] within the next week to follow up and further address. Patient will likely require further cardiac evaluation. Patient with hypertension. Patient placed on lisinopril 5 mg daily. Recommend to maintain blood pressures less than 150/80. Further adjustment can be done by her burnisher and bumper. Patient with hyperlipidemia. LDL elevated. At discharge she will continue with Lipitor 80 mg daily. Compliance with medication addressed. Patient with tobacco abuse. Patient likely with underlying COPD. Will recommend initiation of medication. At discharge will recommend to continue Advair 1 puff twice daily and Pro air 2 puffs 3 times a day as needed for shortness of breath. The patient will also be provided nicotine patch to help her quit smoking. Vital Signs/Physical Exam: Temp Pulse Resp BP Pulse Ox 98.3 F 54 16 127/53 L 95 10/05/18 08:00 10/05/18 08:00 10/05/18 08:00 10/05/18 08:00 10/05/18 08:00 General: Alert, In no apparent distress, Oriented x3, Cooperative HEENT: Atraumatic Neck: Supple Respiratory: Clear to auscultation bilaterally, Normal air movement Cardiovascular: Normal pulses, Regular rate/rhythm Gastrointestinal: Normal bowel sounds, Soft and benign, Non-distended, No tenderness, No masses, No rebound, No guarding Musculoskeletal: No erythema, No tenderness, No warmth Integumentary: No tenderness/swelling, No erythema, No warmth, No cyanosis Neurological: Normal speech, Normal strength at 5/5 x4 extr, Normal tone, Normal affect Laboratory Data at Discharge: WBC 9.1 K/uL (4.3-10.9) D 10/05/18 03:07 Hgb 13.6 g/dL (12.0-15.0) 10/05/18 03:07 Hct 39.8 % (36.0-45.0) 10/05/18 03:07 Plt Count 311 K/uL (152-406) 10/05/18 03:07 PT 12.1 SECONDS (9.5-12.5) 10/04/18 21:20 INR 1.03 10/04/18 21:20 Sodium 140 mmol/L (136-145) 10/05/18 03:07 Potassium 4.0 mmol/L (3.5-5.1) 10/05/18 03:07 BUN 14 mg/dL (7-18) 10/05/18 03:07 Creatinine 0.84 mg/dL (0.55-1.3) 10/05/18 03:07 Glucose 92 mg/dL (74-106) 10/05/18 03:07 Magnesium 2.5 mg/dL (1.8-2.4) H 10/04/18 21:20 Total Bilirubin 0.6 mg/dL (0.2-1.0) 10/04/18 21:20 AST 12 U/L (15-37) L 10/04/18 21:20 ALT 13 U/L (12-78) 10/04/18 21:20 Alkaline Phosphatase 122 U/L (45-117) H 10/04/18 21:20 Troponin I < 0.02 ng/mL (0.0-0.045) 10/05/18 11:07 Triglycerides 173 mg/dL (<150) H 10/05/18 03:07 Cholesterol 250 mg/dL (<200) H 10/05/18 03:07 HDL Cholesterol 38 mg/dL (40-60) L 10/05/18 03:07 Cholesterol/HDL Ratio 6.58 10/05/18 03:07 Home Medications: Albuterol Sulfate [Proair Hfa] 2 puff IH TID PRN #1 hfa.aer.ad 10/05/18 Aspirin 81 mg PO DAILY 10/05/18 Atorvastatin Calcium [Lipitor] 80 mg PO DAILY #30 tablet 10/05/18 Clopidogrel Bisulfate [Plavix] 75 mg PO DAILY #30 tablet 10/05/18 Fluticasone/Salmeterol [Advair 250-50 Diskus] 1 each IH BID #60 blst.w.dev 10/05 Lisinopril 5 mg PO DAILY #30 tablet 10/05/18 Nicotine [Nicotine Patch] 1 each TD DAILY #30 patch.td24 10/05/18 Nitroglycerin 0.4 mg SL SEECOM PRN #15 tab.subl 10/05/18 New Medications: Albuterol Sulfate [Proair Hfa] 2 puff IH TID PRN #1 hfa.aer.ad PRN Reason: Shortness Of Breath Atorvastatin Calcium [Lipitor] 80 mg PO DAILY #30 tablet Clopidogrel Bisulfate [Plavix] 75 mg PO DAILY #30 tablet Fluticasone/Salmeterol [Advair 250-50 Diskus] 1 each IH BID #60 blst.w.dev Lisinopril 5 mg PO DAILY #30 tablet Nicotine [Nicotine Patch] 1 each TD DAILY #30 patch.td24 Nitroglycerin 0.4 mg SL SEECOM PRN #15 tab.subl PRN Reason: Pain Scale 2-4 (Mild) Patient Discharge Instructions: 1. Recommend to establish care with a PCP to follow up this hospitalization. 2. Patient presented with chest pain. Patient with history of CAD in prior stent in late 2018. Patient has not followed up with her burnisher and bumper in [facility]. Patient non compliant with her medication. Patient was evaluated in the hospital. Cardiology was consulted. Cardiology recommended cardiac evaluation including cardiac stress test and/or heart catheterization. The patient declined as she wanted to follow up with her burnisher and bumper in [facility]. Echocardiogram was obtained. This is within normal range. Cardiac enzymes unremarkable. At discharge compliance with medication and follow up addressed. Recommend to continue with aspirin 81 mg daily, Plavix 75 mg 1 pill daily, lisinopril 5 mg daily, Lipitor 80 mg daily, and nitroglycerin as needed for chest pain. Recommend to follow up with her burnisher and bumper in [facility] within the next week to follow up and further address. Patient will likely require further cardiac evaluation. 3. Patient with hypertension. Patient placed on lisinopril 5 mg daily. Recommend to maintain blood pressures less than 150/80. Further adjustment can be done by her burnisher and bumper. 4. Patient with hyperlipidemia. LDL elevated. At discharge she will continue with Lipitor 80 mg daily. Compliance with medication addressed. 5. Patient with tobacco abuse. Patient likely with underlying COPD. Will recommend initiation of medication. At discharge will recommend to continue Advair 1 puff twice daily and Pro air 2 puffs 3 times a day as needed for shortness of breath. The patient will also be provided nicotine patch to help her quit smoking. Diet: AHA Activity: Ad romulo Time spent managing pt's care (in minutes): 55
[2018-10-05 16:58] VITALS: BP 124/57; TEMP 97
[2018-10-05] MEDS ORDERED: ENOXAPARIN 40 MG/0.4 ML SQ SCH (17:00)
[2018-10-05] MEDS ORDERED: ATORVASTATIN 80 MG TAB PO SCH (21:00)
--- NOTE | 2018-10-05 23:31 | CON ---
Date of Consultation: 10/05/2018 The patient admitted by Dr. Iglesias on 10/05/2018. I saw the patient on 10/05/2018. Reason For Consultation: Chest pain. History Of Present Illness: Mrs. Cordero is a 63-year-old white woman. She has a history of COPD, m yocardial infarction, status post stents. She has a history of hypertension and depression. She omkar shelton lives in [place]. She is here temporarily. She does not recall the details of her stent or whe ther she had congestive heart failure at that time or not. She comes in with midsternal chest pain r adiating to the back with some nausea, no vomiting, no diaphoresis, no shortness of breath. She had headache and dizziness. She has been under significant amount of stress lately. Symptoms lasted manjit roximately 4-5 hours. Her chest x-ray was still negative. Her EKG shows sinus bradycardia. Her tro ponin was negative. CPKs, MBs, and BNP were negative. She had a cholesterol of 250, LDL 177, and tr iglycerides of 173. Mrs. Cordero only takes a baby aspirin and has not taken her cardiac meds for ma ny years. Allergies: NONE. Review of Systems: Negative. Social History: Negative. Family History: Noncontributory. Physical Examination: Vital Signs: Stable, afebrile. General: Mrs. Cordero appeared rather depressed and anxious, was complaining of bad headaches. HEENT: Exam was negative. Neck: Supple without any bruit, lymphadenopathy, JVD, or thyromegaly. Chest: Clear to auscultation and percussion. Cardiac: Exam revealed a regular rhythm and rate. No murmurs, gallops, or rubs. Abdomen: Benign. Extremities: Revealed no clubbing, cyanosis, or edema. Diagnostic Data: As stated earlier. Impression And Plan: 1.Atypical chest pain. 2.History of CAD, status post PCI. 3.COPD. 4.Hypertension. 5.Depression. 6.Dyslipidemia. 7.Noncompliance with therapy. Mrs. Cordero was offered a stress test or heart catheterization. She prefers to have that back home in [place]. I convinced her to have at least an echocardiogram, so we can see if she has any wall mot ion abnormalities and then make a decision regarding further care. Regardless, I think she needs to be on an aspirin, beta-erwin, and a statin and we will be happy to see her in the office if her sym ptoms persist. HOWARD/REHAN Voice ID: [id number] Report ID: [id number]
== END 2018-10-05 15:30 | disposition home or self-care (01) | DRG 303 ==
LOC: ER 21:09 → ERHOLD 10-05 01:00 → 4TH 10-05 02:19
PROVIDERS: ADMIT Internal Medicine; ATTEND Family Medicine
DX: I25.110 Atherosclerotic heart disease of native coronary artery with unstable angina pectoris (principal); F17.210 Nicotine dependence, cigarettes, uncomplicated; E78.5 Hyperlipidemia, unspecified; I10 Essential (primary) hypertension; J44.9 Chronic obstructive pulmonary disease, unspecified; F32.9 Major depressive disorder, single episode, unspecified; Z91.14 Patient's other noncompliance with medication regimen; R00.1 Bradycardia, unspecified; I25.2 Old myocardial infarction; Z95.5 Presence of coronary angioplasty implant and graft
CPT/HCPCS: 36415; 71045; 80048; 80061; 80076; 81003; 81015; 83735; 83880; 84484; 85025; 85610; 93005; 93306; 96372; 96374; 96375; 99285; J1650; J2405